=== PATIENT | male | born 2000 | race American Indian/Alaskan Native ===

== ENCOUNTER 2021-03-20 23:43 | Emergency (ER) | payer MEDICAID ==
[2021-03-20 23:54] VITALS: BP 128/82
--- NOTE | 2021-03-21 00:55 | XRay Report ---
CHEST 2 VIEWS INDICATION / CLINICAL INFORMATION: chest pain. COMPARISON: None available. FINDINGS: SUPPORT DEVICES: None. HEART / MEDIASTINUM: No significant abnormality. LUNGS / PLEURA: No significant pulmonary or pleural abnormality. No pneumothorax. ADDITIONAL FINDINGS: No significant additional findings. IMPRESSION: 1. No acute findings. Signer Name: Valente Klein DO Signed: 03/21/2021 12:51 AM Workstation Name: [id number]
--- NOTE | 2021-03-21 01:10 | Emergency Department Report ---
ED Chest Pain HPI - General Chief Complaint: Chest Pain Stated Complaint: CHEST TIGHTNESS/WEAKNESS/NAUSEA PUI?: No Time Seen by Provider: 03/21/21 01:05 Source: patient Mode of arrival: Ambulatory Limitations: No Limitations - History of Present Illness Initial Comments: Patient is a 20-year-old male who presents emergency room with complaints of chest pain x2 days. Patient states his chest pain is unchanged. Patient states is actually improving a little bit. Patient states that the chest pain is in his left chest. Patient states chest pain is nonradiating. Patient states that the chest pain is worse with movement and palpation. Patient states the chest pain is better with rest. Patient denies shortness of breath. Patient states he has nausea at times. Patient states he has not vomited. Patient denies diaphoresis. Patient denies anxiety. Patient denies recent travel. Patient denies recent international travel. Patient denies exposure to the novel coronavirus. Patient denies sick contacts. Patient denies fever and chills. Patient denies cough. Patient denies diarrhea. Patient denies coming in contact with anybody with symptoms of the novel coronavirus. Patient states he had heart surgery as a child for congenital aortic stenosis. Patient states he has not had any problems with the valves since having changed. Patient states he does not take any medication. Patient denies past medical history besides the aortic stenosis. MD Complaint: chest pain -: Sudden Onset: during rest Pain Location: substernal, left chest Severity scale (0 -10): 3 Quality: aching Consistency: constant Improves With: rest Worsens With: palpation, movement re: nausea. denies: vomting, diaphoresis, dyspnea, sense of impending doom Other Symptoms: denies: cough, fever, syncope, rash, acid taste in mouth, leg swelling Treatments Prior to Arrival: none Aspirin use within the Past 7 Days: (0) No - Related Data On Oral Contraceptives: No Allergies Allergy/AdvReac Type Severity Reaction Status Date / Time No Known Allergies Allergy Unverified 03/21/21 00:02 Heart Score - HEART Score History: Slightly suspicious EKG: Normal Age: < 45 Risk factors: No known risk factors Troponin: < normal limit HEART Score: 0 - EKG Read Time Time EKG Completed: 00:17 EKG Read Time: 00:22 ED Review of Systems ROS: Stated complaint: CHEST TIGHTNESS/WEAKNESS/NAUSEA Other details as noted in HPI Constitutional: denies: chills, fever Eyes: denies: eye pain, eye discharge, vision change ENT: denies: ear pain, throat pain Respiratory: denies: cough, shortness of breath, wheezing Cardiovascular: chest pain. denies: palpitations Endocrine: no symptoms reported Gastrointestinal: nausea. denies: abdominal pain, diarrhea Genitourinary: denies: urgency, dysuria Musculoskeletal: denies: back pain, joint swelling, arthralgia Skin: denies: rash, lesions Neurological: denies: headache, weakness, paresthesias Psychiatric: denies: anxiety, depression Hematological/Lymphatic: denies: easy bleeding, easy bruising ED Past Medical Hx - Past Medical History Previous Medical History?: Yes Additional medical history: Congenital aortic stenosis with valve replacement - Surgical History Past Surgical History?: Yes Additional Surgical History: open heart surgery, valve replacement - Family History Family history: no significant - Social History Smoking Status: Never Smoker Substance Use Type: None ED Physical Exam - General Limitations: No Limitations General appearance: alert, in no apparent distress - Head Head exam: Present: atraumatic, normocephalic - Eye Eye exam: Present: normal appearance - ENT ENT exam: Present: mucous membranes moist - Neck Neck exam: Present: normal inspection - Respiratory Respiratory exam: Present: normal lung sounds bilaterally, chest wall tenderness (Left-sided chest wall tenderness to palpation. Palpation of the chest wall reproduces symptoms.). Absent: respiratory distress, wheezes, rales - Cardiovascular Cardiovascular Exam: Present: regular rate, normal rhythm. Absent: systolic murmur, diastolic murmur, rubs, gallop - GI/Abdominal GI/Abdominal exam: Present: soft, normal bowel sounds. Absent: distended, tenderness, guarding - Rectal Rectal exam: Present: deferred - Extremities Exam Extremities exam: Present: normal inspection - Back Exam Back exam: Present: normal inspection - Neurological Exam Neurological exam: Present: alert, oriented X3 - Psychiatric Psychiatric exam: Present: normal affect, normal mood - Skin Skin exam: Present: warm, dry, intact, normal color. Absent: rash ED Course Vital Signs 03/20/21 23:49 Temperature 98.0 F Pulse Rate 92 H Respiratory 18 Rate Blood Pressure 128/82 O2 Sat by Pulse 97 Oximetry - Reevaluation(s) Reevaluation #1: I discussed all results and clinical findings with patient. I discussed plan of care with patient. Patient agrees with plan of care. Patient is stable for discharge. Patient will be discharged home. Patient given discharge instructions. Patient voiced understanding of discharge instructions. 03/21/21 02:29 MARIELY score - Mariely Score Age > 65: (0) No Aspirin use within the Past 7 Days: (0) No 3 or more CAD Risk Factors: (0) No 2 or more Angina events in past 24 hrs: (0) No Known CAD with more than 50% Stenosis: (0) No Elevated Cardiac Markers: (0) No ST Deviation Greater than 0.5mm: (0) No MARIELY Score: 0 ED Medical Decision Making - Lab Data Result diagrams: 03/21/21 00:54 03/21/21 00:54 - EKG Data -: EKG Interpreted by Me EKG shows normal: sinus rhythm, axis, intervals, QRS complexes, ST-T waves Rate: normal - Radiology Data Radiology results: report reviewed, image reviewed interpreted by me: Chest x-ray: No pneumonia, no pneumothorax, no foreign body, no osseous findings, no acute findings CHEST 2 VIEWS INDICATION / CLINICAL INFORMATION: chest pain. COMPARISON: None available. FINDINGS: SUPPORT DEVICES: None. HEART / MEDIASTINUM: No significant abnormality. LUNGS / PLEURA: No significant pulmonary or pleural abnormality. No pneumothorax. ADDITIONAL FINDINGS: No significant additional findings. IMPRESSION: 1. No acute findings. - Medical Decision Making Patient is a 20-year-old male who presents emergency room with complaints of chest wall pain. Patient's chest wall pain was reproducible with palpation and movement. Patient had labs done. Patient's labs were negative. Patient's labs were essentially unremarkable. Patient had a negative troponin. Patient had a chest x-ray. Patient's chest x-ray was negative for acute findings. Patient EKG was done. Patient's EKG shows no ST changes. I personally reviewed the chest x-ray and EKG. Patient is stable. Patient's clinical finding consistent with chest wall sprain and chest wall tenderness. Patient is stable for dis charge. Patient is not require any further emergency medical service. Patient not require inpatient service. Patient stable for discharge. Patient discharged home. I discussed all results and clinical findings with patient. I discussed plan of care with patient. Patient agrees with plan of care. Patient is stable for discharge. Patient will be discharged home. Patient given discharge ins tructions. Patient voiced understanding of discharge instructions. - Differential Diagnosis Chest pain, chest wall pain, chest carrillo sprain. Critical care attestation.: If time is entered above; I have spent that time in minutes in the direct care of this critically ill patient, excluding procedure time. ED Disposition Clinical Impression: Chest pain Qualifiers: Chest pain type: unspecified Qualified Code(s): R07.9 - Chest pain, unspecified Sprain of chest wall Qualifiers: Encounter type: initial encounter Qualified Code(s): S23.8XXA - Sprain of other specified parts of thorax, initial encounter Disposition: HOME / SELF CARE / HOMELESS Is pt being admited?: No Does the pt Need Aspirin: No Condition: Stable Instructions: Chest Wall Pain, [id number] Additional Instructions: Patient to follow-up with primary care in 2 to 3 days. Patient to follow-up with cardiology in 2 to 3 days. Patient to rest. Patient to increase water. Patient to avoid strenuous exercise or heavy lifting until cleared by cardiology .. Patient to take Tylenol or ibuprofen as needed for pain. Patient to return to the ER if condition worsens, changes or new symptoms arise. Referrals: HERBER NOLEN MD [Staff Physician] - 2-3 Days STU SANTORO MD [Staff Physician] - 2-3 Days Time of Disposition: 02:33
[2021-03-21 01:40] LABS: Basophils % (Auto) 0.6 % (0.0-1.8); Eosinophils # (Auto) 0.2 K/mm3 (0.0-0.4); Eosinophils % (Auto) 5.2 % (0.0-4.3); Hematocrit 39.7 % (35.5-45.6); Hemoglobin 13.2 gm/dl (11.8-15.2); Lymphocytes # (Auto) 1.4 K/mm3 (1.2-5.4); Mean Corpuscular HGB Conc 33 % (32-34); Mean Corpuscular Volume 89 fl (84-94); Monocytes # (Auto) 0.6 K/mm3 (0.0-0.8); Monocytes % (Auto) 14.8 % (0.0-7.3); Platelet Count 201 K/mm3 (140-440); Red Blood Count 4.49 M/mm3 (3.65-5.03); Red Cell Distribution Width 13.2 % (13.2-15.2)
[2021-03-21 02:01] LABS: Alanine Aminotransferase 21 units/L (7-56); Albumin 4.6 g/dL (3.9-5); BUN/Creatinine Ratio 10; Blood Urea Nitrogen 11 mg/dL (9-20); Calcium 9.7 mg/dL (8.4-10.2); Hemolysis Index 18
--- NOTE | 2021-03-21 09:19 | Electrocardiograph Report ---
[facility] Test Date: 2021-03-21 Test Time: 00:17:25 Pat Name: DANISHA GREGG Department: Room: Gender: M [employer] Setup Worker: [id number] : [id number] Requested By: ANDRES RICARDO III Order Number: [id number] Reading MD: Hugo Howell Measurements Intervals Avenue Rate: 75 P: 41 NV: 162 QRS: 33 QRSD: 92 T: 38 QT: 383 QTc: 428 Interpretive Statements Sinus rhythm nonspecific st-t No previous ECG available for comparison Electronically Signed On 03-21-2021 9:19:11 EDT by Hugo Howell
== END 2021-03-21 03:59 | disposition home or self-care (01) ==
LOC: ED 23:43
DX: S23.8XXA Sprain of other specified parts of thorax, initial encounter (principal); X58.XXXA Exposure to other specified factors, initial encounter; Y93.89 Activity, other specified; Y92.89 Other specified places as the place of occurrence of the external cause; Y99.8 Other external cause status
CPT/HCPCS: 36415; 71046; 80053; 84484; 85025; 93005; 99283

== ENCOUNTER 2021-03-22 06:50 | Emergency (ER) | payer SELFPAY ==
[2021-03-22 07:10] VITALS: BP 112/73
== END 2021-03-22 07:25 | disposition left against medical advice (07) ==
LOC: ED 06:50
DX: R07.9 Chest pain, unspecified (principal); Z53.21 Procedure and treatment not carried out due to patient leaving prior to being seen by health care provider